=== PATIENT | female | born 1950 ===

== ENCOUNTER 2016-05-17 10:39 | Emergency (ER) | payer OTHER ==
[2016-05-17 10:51] VITALS: O2SAT 96
[2016-05-17] MEDS ORDERED: Sodium Chloride 0.9% 500 ML IV ONE ×2 (11:15→11:34)
[2016-05-17 11:35] LABS: BASO # 0.1 K/uL (0.0-0.2); BASO % 1.1 % (0.0-2.0); EOS # 0.7 K/uL (0.0-0.7); EOS % 6.3 % (0.0-4.0); HEMATOCRIT 35.5 % (34.0-47.0); LYMPH # 3.3 K/uL (1.0-4.3); MEAN CELL VOLUME 86.6 fL (81.0-99.0); MEAN CORPUSCULAR HGB CONC 32.3 g/dL (33.0-37.0); MEAN PLATELET VOLUME 8.1 fL (7.2-11.7); MONO # 0.7 K/uL (0.0-0.8); MONO % 5.9 % (0.0-10.0); RED CELL DISTRIBUTION WIDTH 13.9 % (11.5-14.5); WHITE BLOOD COUNT 11.7 K/uL (4.8-10.8)
[2016-05-17 11:43] LABS: POTASSIUM 4.2 mmol/L (3.6-5.2)
[2016-05-17 11:44] LABS: RBC URINE 2 /hpf (0-3); URINE BACTERIA RARE (<OCC); URINE BILIRUBIN NEGATIVE (NEGATIVE); URINE BLOOD 1+ (NEGATIVE); URINE COLOR Yellow (YELLOW); URINE GLUCOSE (UA) NORMAL (Normal); URINE KETONE NEGATIVE (NEGATIVE); URINE LEUKOCYTE ESTERASE TRACE Leu/uL (Negative); URINE PROTEIN NEGATIVE (NEGATIVE); URINE UROBILINOGEN NORMAL mg/dL (0.2-1.0); WBC URINE 10 /hpf (0-5)
[2016-05-17 11:46] LABS: BILIRUBIN,TOTAL 0.3 mg/dL (0.2-1.3); CALCIUM 8.7 mg/dl (8.6-10.4); TOTAL PROTEIN 8.1 g/dL (6.3-8.3)
[2016-05-17 11:47] LABS: ALB/GLOB RATIO 1.1 (1.0-2.1)
--- NOTE | 2016-05-17 12:00 | C.PDOC ---
History Of Present Illness The patient, a 65 y/o female whose PMHx includes kidney problems and hypercholesterolemia, presents to the ED for evaluation of generalized weakness which began around 1 week ago. As per family, patient recently arrived [place] the [place] after staying in [facility] for around 3 months. Patient has a history of renal insufficiency and states she does not have a PMD that she sees regularly. Otherwise, family members deny fever, chills, pain, nausea, vomiting, diarrhea on patient's behalf. Time Seen by Provider: 05/17/16 11:04 Chief Complaint (Nursing): Medical Clearance History Per: Family History/Exam Limitations: no limitations Onset/Duration Of Symptoms: Days Current Symptoms Are (Timing): Still Present Recent travel outside of the [place]: Yes Additional History Per: Family Past Medical History Reviewed: Historical Data, Nursing Documentation, Vital Signs Vital Signs: Last Vital Signs Temp 97.8 F 05/17/16 12:19 Pulse 62 05/17/16 12:19 Resp 18 05/17/16 12:19 BP 145/82 05/17/16 12:19 Pulse Ox 96 05/17/16 12:34 - Medical History PMH: Gastritis, Hypercholesterolemia, Kidney Stones Surgical History: No Surg Hx Family History: States: Unknown Family Hx - Social History Hx Alcohol Use: No Hx Substance Use: No - Immunization History Hx Tetanus Toxoid Vaccination: No Hx Influenza Vaccination: No Hx Pneumococcal Vaccination: No Review Of Systems Except As Marked, All Systems Reviewed And Found Negative. Constitutional: Positive for: Weakness. Negative for: Fever, Chills Gastrointestinal: Negative for: Nausea, Vomiting, Abdominal Pain, Diarrhea Musculoskeletal: Negative for: Back Pain Physical Exam - Physical Exam Appears: Non-toxic, No Acute Distress Skin: Normal Color, Warm, Dry Head: Atraumatic, Normacephalic Eye(s): bilateral: Normal Inspection, EOMI Oral Mucosa: Moist Neck: Normal ROM, Supple Chest: Symmetrical, No Deformity, No Tenderness Cardiovascular: Rhythm Regular, No Murmur Respiratory: Normal Breath Sounds, No Rales, No Rhonchi, No Wheezing Gastrointestinal/Abdominal: Soft, No Tenderness, No Guarding, No Rebound Back: Normal Inspection, No Vertebral Tenderness, No Paraspinal Tenderness Extremity: Normal ROM, Capillary Refill (less than 2 seconds) Neurological/Psych: Oriented x3, Normal Speech, Normal Cognition Gait: Steady ED Course And Treatment - Laboratory Results Result Diagrams: 05/17/16 11:32 04 11:32 O2 Sat by Pulse Oximetry: 96 (on RA) Pulse Ox Interpretation: Normal Medical Decision Making Medical Decision Making: Impression: 65 y/o female with generalized weakness Plan: * labs * IV fluids * reassess and disposition Progress Notes: labs ordered and reviewed showing renal insufficiency Patient received IV Fluids. Patient remained well and in no acute distress. Discuss results with patient and family and provide copy of results. Advise family to make appointment in [facility] and also provide number for dairy equipment specialist service. Disposition Counseled Patient/Family Regarding: Need For Followup - Disposition Referrals: [facility] [Outside] [facility] [Outside] Disposition: HOME/ ROUTINE Disposition Time: 11:59 Condition: STABLE Additional Instructions: Follow up with the clinic in 2-5 days for further evaluation. Return to the emergency department at any time if symptoms persist or worsen. You may call dairy equipment specialist service for any assistance [phone]. 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 - Scribe Statement The provider has reviewed the documentation as recorded by the Scribe (Phyllis Moran) All medical record entries made by the Scribe were at my direction and personally dictated by me. I have reviewed the chart and agree that the record accurately reflects my personal performance of the history, physical exam, medical decision making, and the department course for this patient. I have also personally directed, reviewed, and agree with the discharge instructions and disposition.
[2016-05-17 12:20] VITALS: BP 145/82; PULSE 62; RESP 18; TEMP 97.8
== END 2016-05-17 12:20 | disposition home or self-care (01) ==
LOC: C.ER 10:39
DX: N18.9 Chronic kidney disease, unspecified (principal)

== ENCOUNTER 2016-12-06 15:11 | Emergency (ER) | payer OTHER ==
[2016-12-06 15:12] VITALS: BMI 29.7
[2016-12-06 15:56] VITALS: O2SAT 100
--- NOTE | 2016-12-06 18:32 | C.PDOC ---
Time Seen by Provider: 12/06/16 16:34 Chief Complaint (Nursing): Med Refill Past Medical History Vital Signs: Last Vital Signs Temp 98.1 F 12/06/16 15:51 Pulse 78 12/06/16 15:51 Resp 20 12/06/16 15:51 BP 127/81 12/06/16 15:51 Pulse Ox 100 12/06/16 15:51 - Medical History PMH: Gastritis, Hypercholesterolemia, Kidney Stones Family History: States: Unknown Family Hx - Social History Hx Alcohol Use: No Hx Substance Use: No - Immunization History Hx Tetanus Toxoid Vaccination: No Hx Influenza Vaccination: No Hx Pneumococcal Vaccination: No ED Course And Treatment O2 Sat by Pulse Oximetry: 100 Disposition Counseled Patient/Family Regarding: Diagnosis, Need For Followup, Rx Given - Disposition Referrals: [facility] [Outside] [facility] [Outside] Disposition: HOME/ ROUTINE Disposition Time: 18:27 Condition: GOOD Prescriptions: Simethicone [Gas-X] 125 mg PO Q6 #20 capsule Instructions: Gas and Bloating (ED) - Clinical Impression Clinical Impression: Gassiness
--- NOTE | 2016-12-06 18:36 | C.PDOC ---
History Of Present Illness 66 y/o female presents to ED for incidental evaluation of "little bit of kidney problem". Pt states that she was diagnosed with "kidney problem" 1 year ago. Notes that she missed her clinic appointment last month, and would like to "get everything checked" here today. Pt complains of "gas", states that she has been eating and drinking fine. Denies chest pain, shortness of breath, nausea, vomiting, or fever. Time Seen by Provider: 12/06/16 16:34 Chief Complaint (Nursing): Med Refill History Per: Patient History/Exam Limitations: no limitations Onset/Duration Of Symptoms: Days Current Symptoms Are (Timing): Still Present Recent travel outside of the [place]: No Additional History Per: Patient Past Medical History Reviewed: Historical Data, Nursing Documentation, Vital Signs Vital Signs: Last Vital Signs Temp 98 F 12/06/16 18:51 Pulse 72 12/06/16 18:51 Resp 18 12/06/16 18:51 BP 122/80 12/06/16 18:51 Pulse Ox 100 12/06/16 18:51 - Medical History PMH: Gastritis, Hypercholesterolemia, Kidney Stones Family History: States: Unknown Family Hx - Social History Hx Alcohol Use: No Hx Substance Use: No - Immunization History Hx Tetanus Toxoid Vaccination: No Hx Influenza Vaccination: No Hx Pneumococcal Vaccination: No Review Of Systems Except As Marked, All Systems Reviewed And Found Negative. Constitutional: Negative for: Fever, Chills Cardiovascular: Negative for: Chest Pain, Palpitations Respiratory: Negative for: Cough, Shortness of Breath Gastrointestinal: Negative for: Nausea, Vomiting, Diarrhea Genitourinary: Negative for: Dysuria, Frequency, Hematuria Neurological: Negative for: Headache, Dizziness Physical Exam - Physical Exam Appears: Non-toxic, No Acute Distress Skin: Normal Color, Warm, Dry Head: Atraumatic, Normacephalic Eye(s): bilateral: Normal Inspection Oral Mucosa: Moist Neck: Supple Chest: Symmetrical Cardiovascular: Rhythm Regular, No Murmur Respiratory: Normal Breath Sounds, No Rales, No Rhonchi, No Wheezing Gastrointestinal/Abdominal: Soft, No Tenderness Back: Normal Inspection, No CVA Tenderness Extremity: Normal ROM, No Pedal Edema, No Deformity Neurological/Psych: Oriented x3, Normal Speech ED Course And Treatment O2 Sat by Pulse Oximetry: 100 (RA) Pulse Ox Interpretation: Normal Disposition Counseled Patient/Family Regarding: Diagnosis, Need For Followup, Rx Given - Disposition Referrals: [facility] [Outside] [facility] [Outside] Disposition: HOME/ ROUTINE Disposition Time: 18:27 Condition: GOOD Prescriptions: Simethicone [Gas-X] 125 mg PO Q6 #20 capsule Instructions: Gas and Bloating (ED) Forms: [employer] (Samoan) - Clinical Impression Clinical Impression: Gassiness - Scribe Statement The provider has reviewed the documentation as recorded by the Scribkaruna Moran All medical record entries made by the Sabasibe were at my direction and personally dictated by me. I have reviewed the chart and agree that the record accurately reflects my personal performance of the history, physical exam, medical decision making, and the department course for this patient. I have also personally directed, reviewed, and agree with the discharge instructions and disposition.
[2016-12-06 18:51] VITALS: BP 122/80; PULSE 72; RESP 18; TEMP 98
== END 2016-12-06 18:51 | disposition home or self-care (01) ==
LOC: C.ER 15:11
DX: R14.0 Abdominal distension (gaseous) (principal); E78.00 Pure hypercholesterolemia, unspecified

== ENCOUNTER 2018-04-21 10:07 | Emergency (ER) | payer OTHER ==
[2018-04-21 10:07] VITALS: BMI 29.7
--- NOTE | 2018-04-21 11:37 | C.PDOC ---
History Of Present Illness 67 y/o female presents to the ER complaining of right breast pain which began yesterday. Patient is also complaining itching to the right breast for the past 2 weeks. Patient states that she had a mammogram in December 2017. Afterwards , daughter of patient states that she went to [facility]. In [facility], she had breast sonogram which showed cystic structure at approximately the 12 o clock area. Daughter notes that patient has history of cystic structure which was removed years ago. Denies having nipple discharge, rash, CP,SOB, fever, and chills. Time Seen by Provider: 04/21/18 11:22 Chief Complaint (Nursing): Breast Problem History Per: Patient, Family (daughter) History/Exam Limitations: no limitations Onset/Duration Of Symptoms: Days Current Symptoms Are (Timing): Still Present Severity: Moderate Past Medical History Reviewed: Historical Data, Nursing Documentation, Vital Signs Vital Signs: Last Vital Signs Temp 98.5 F 04/21/18 10:19 Pulse 95 H 04/21/18 10:19 Resp 16 04/21/18 10:19 BP 136/80 04/21/18 10:19 Pulse Ox 95 04/21/18 10:19 - Medical History PMH: Gastritis, HTN, Hypercholesterolemia, Kidney Stones Other Surgeries: Hx of surgeries Family History: States: No Known Family Hx - Social History Hx Alcohol Use: No Hx Substance Use: No - Immunization History Hx Tetanus Toxoid Vaccination: No Hx Influenza Vaccination: No Hx Pneumococcal Vaccination: No Review Of Systems Except As Marked, All Systems Reviewed And Found Negative. Constitutional: Negative for: Fever, Chills Cardiovascular: Negative for: Chest Pain Respiratory: Negative for: Shortness of Breath Musculoskeletal: Positive for: Other (right breast pain) Physical Exam - Physical Exam Appears: Non-toxic, No Acute Distress Skin: Normal Color, Warm, Dry Head: Atraumatic, Normacephalic Eye(s): bilateral: Normal Inspection Nose: Normal Oral Mucosa: Moist Neck: Supple Chest: Symmetrical, Other (post op scar below right nipple, no nipple discharge, no skin changes, no lumps) Cardiovascular: Rhythm Regular Respiratory: Normal Breath Sounds, No Rales, No Rhonchi, No Wheezing Neurological/Psych: Oriented x3, Normal Speech ED Course And Treatment O2 Sat by Pulse Oximetry: 95 (RA) Pulse Ox Interpretation: Normal Progress Note: Patient treated with Motrin PO and Tylenol PO. Disposition - Disposition Referrals: [facility] [Outside] Disposition: HOME/ ROUTINE Disposition Time: 11:33 Condition: STABLE Additional Instructions: Follow up with Clinic/Breast specialist within 1-2 days. Return to ED if feel worse. 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 - Scribe Statement The provider has reviewed the documentation as recorded by the Melina Medel Provider Attestation All medical record entries made by the Sabasibe were at my direction and personally dictated by me. I have reviewed the chart and agree that the record accurately reflects my personal performance of the history, physical exam, medical decision making, and the department course for this patient. I have also personally directed, reviewed, and agree with the discharge instructions and disposition.
[2018-04-21 12:26] VITALS: BP 129/82; PULSE 91; RESP 18; TEMP 98.4
[2018-04-21 12:44] VITALS: O2SAT 95
== END 2018-04-21 12:26 | disposition home or self-care (01) ==
LOC: C.ER 10:07
DX: N64.4 Mastodynia (principal)

== ENCOUNTER 2018-05-05 09:01 | Outpatient (CLI) | payer OTHER | END 2018-05-05 09:02 | disposition home or self-care (01) | LOC: C.MAMMO 09:01 ==